=== PATIENT | female | born 1995 | race Caucasian/White ===

== ENCOUNTER 2016-06-28 11:31 | Outpatient (CLI) | payer OTHER ==
[2016-06-28 13:26] LABS: BILIRUBIN,URINE NEGATIVE (NEGATIVE); PH,URINE 6.5 PH (5.0-7.5)
[2016-06-28 13:33] LABS: UR CULTURE IF IND NOT INDICATED
[2016-06-28 14:30] VITALS: BP 123/80
[2016-06-28 14:37] LABS: BILIRUBIN,URINE NEGATIVE (NEGATIVE)
[2016-06-28 14:48] LABS: UR CULTURE IF IND NOT INDICATED; WBC,URINE 0-3 /HPF (0-5)
== END 2016-06-28 15:30 | disposition home or self-care (01) ==
LOC: WFO 11:31 → OB 11:34 → WFO 15:30
PROVIDERS: ATTEND Obstetrics & Gynecology
DX: O99.89 Other specified diseases and conditions complicating pregnancy, childbirth and the puerperium (principal); N23 Unspecified renal colic; Z3A.38 38 weeks gestation of pregnancy
CPT/HCPCS: 81001; 87086; 99214

== ENCOUNTER 2016-07-08 20:52 | Observation (INO) | payer OTHER | END 2016-07-08 22:15 | disposition home or self-care (01) | DX: O47.1 False labor at or after 37 completed weeks of gestation (principal); Z3A.39 39 weeks gestation of pregnancy ==

== ENCOUNTER 2016-07-13 07:02 | Inpatient (IN) | payer OTHER ==
[~2016-07-13 07:02] MED LIST: ONDANSETRON 4 MG/2 ML VIAL IVP PRN; OXYTOCIN/LACTATED RINGERS 250 ML IV SCH; SODIUM CHLORIDE FLUSH 0.9% 10 ML SYRINGE IVP PRN
[2016-07-13] MEDS: LACTATED RINGERS 1,000 ML IV SCH ×2 (08:10→09:15)
[2016-07-13] MEDS ORDERED: SUFENTA/BUPIV 0.4 MCG/0.0625% 150 ML EP ONE (09:06)
[2016-07-13] MEDS ORDERED: fentaNYL 100 MCG/2 ML VIAL ONE (09:06)
[2016-07-13] MEDS ORDERED: ROPIVACAINE 0.2% PF 10 ML VIAL EPI ONE (09:43)
[2016-07-13] MEDS ORDERED: NALOXONE 0.4 MG/ML VIAL IVP PRN ×2 (09:58→11:09)
[2016-07-13] MEDS ORDERED: ONDANSETRON 4 MG/2 ML VIAL IVP PRN ×2 (09:58→11:09)
[2016-07-13] MEDS ORDERED: LACTATED RINGERS 500 ML IV ONE ×2 (09:58→11:09)
[2016-07-13] MEDS ORDERED: diphenhydrAMINE INJ 50 MG/ML VIAL IVP PRN ×2 (09:58→11:09)
[2016-07-13] MEDS ORDERED: SUFENTA/ROPIV 0.5 MCG/0.2% 150 ML EP PRN (09:58)
[2016-07-13] MEDS ORDERED: NALBUPHINE 20 MG/ML AMP IVP PRN ×2 (09:58→11:09)
[2016-07-13] MEDS ORDERED: METOCLOPRAMIDE 10 MG/2 ML VIAL IVP PRN ×2 (09:58→11:09)
[2016-07-13] MEDS ORDERED: ePHEDrine 50 MG/ML AMP IVP PRN ×2 (09:58→11:09)
[2016-07-13] MEDS ORDERED: SUFENTA/BUPIV 0.4 MCG/0.0625% 150 ML EP PRN (11:25)
[2016-07-13] MEDS: SODIUM CHLORIDE FLUSH 0.9% 10 ML SYRINGE IVP SCH (11:45)
[2016-07-13] MEDS ORDERED: MINERAL OIL LIGHT 10 ML MC ONE (15:13)
[2016-07-13] MEDS ORDERED: LIDOCAINE 1% 50 ML MDV ONE (15:26)
[2016-07-13] MEDS: OXYTOCIN/LACTATED RINGERS 250 ML IV ONE ×2 (16:00→17:11)
[2016-07-13] MEDS ORDERED: ZOLPIDEM 5 MG TABLET PO PRN (16:44)
[2016-07-13] MEDS: IBUPROFEN 600 MG TABLET PO SCH ×2 (17:15→22:49)
[2016-07-13] MEDS: HYDROcod/ACETAM 5/325 MG TABLET PO PRN (19:22)
[2016-07-14] MEDS: IBUPROFEN 600 MG TABLET PO SCH ×3 (05:11→23:55)
[2016-07-14] MEDS: DOCUSATE SODIUM 100 MG CAPSULE PO SCH (11:24)
[2016-07-14] MEDS: HYDROCORTISONE/PRAMOXINE 10 GM PR PRN (11:25)
[2016-07-14] MEDS: SODIUM CHLORIDE FLUSH 0.9% 10 ML SYRINGE IVP SCH (14:16)
[2016-07-14] MEDS: LACTATED RINGERS 1,000 ML IV SCH ×2 (14:16→14:17)
[2016-07-14] MEDS: HYDROcod/ACETAM 5/325 MG TABLET PO PRN ×2 (19:10→23:54)
[2016-07-15] MEDS: HYDROCORTISONE/PRAMOXINE 10 GM PR PRN (13:36)
[2016-07-15] MEDS: DOCUSATE SODIUM 100 MG CAPSULE PO SCH (13:36)
[2016-07-15] MEDS: IBUPROFEN 600 MG TABLET PO SCH (13:36)
== END 2016-07-15 14:00 | disposition home or self-care (01) | DRG 775 ==
PROC: 0W8NXZZ Division of Female Perineum, External Approach (ICD-10-PCS; principal; 2016-07-13)
PROC: 10D07Z6 Extraction of Products of Conception, Vacuum, Via Natural or Artificial Opening (ICD-10-PCS; principal; 2016-07-13)
DX: O48.0 Post-term pregnancy (principal); O32.2XX0 Maternal care for transverse and oblique lie, not applicable or unspecified; O77.0 Labor and delivery complicated by meconium in amniotic fluid; O76 Abnormality in fetal heart rate and rhythm complicating labor and delivery; O69.89X0 Labor and delivery complicated by other cord complications, not applicable or unspecified; Z3A.40 40 weeks gestation of pregnancy; Z37.0 Single live birth; Z87.891 Personal history of nicotine dependence; Z87.51 Personal history of pre-term labor

== ENCOUNTER 2016-10-03 17:26 | Emergency (ER) | payer OTHER ==
[2016-10-03 17:41] VITALS: BP 120/77
[2016-10-03] MEDS ORDERED: IBUPROFEN 800 MG TABLET PO STA (17:48)
[2016-10-03] MEDS ORDERED: IBUPROFEN 800 MG TABLET PO ONE (17:56)
--- NOTE | 2016-10-03 18:48 | XRAY Preliminary Report ---
Exam: XR Finger(s) RT IMPRESSION: Mildly displaced fracture of the head and shaft of the fifth middle phalanx. [facility] SITE ID: [id number]
--- NOTE | 2016-10-03 18:50 | ED Physician Documentation ---
PD HPI UPPER EXT INJURY - Stated complaint Stated Complaint: RT HAND PX - Chief complaint Chief Complaint: Ext Problem - History obtained from History obtained from: Patient - History of Present Illness Location: Right, Finger Type of injury: Twist Where injury occurred: Park Timing - onset: How many hours ago (1) Associated symptoms: Swelling. No: Weakness, Numbness Similar symptoms before: Has not had sx before - Additonal information Additional information: The patient is a 21-year-old female who presents with injury to her right ring and little fingers. Her dog's leash was wrapped around the fingers of her right hand and was yanked when she was her dog from another dog at the park about one hour prior to arrival. She is right hand dominant. She denies any other injuries. Review of Systems Respiratory: denies: Dyspnea Skin: denies: Abrasion (s), Laceration (s) Musculoskeletal: reports: Extremity pain (Fingers right hand). denies: Neck pain, Back pain Neurologic: denies: Focal weakness, Numbness PD PAST MEDICAL HISTORY - Past Medical History Cardiovascular: None Respiratory: None Neuro: None Endocrine/Autoimmune: None - Present Medications Home Medications: Ambulatory Orders Medication Instructions Recorded Confirmed HYDROcod/ACETAM 5/325 [Vicodin 1 - 2 ea PO Q6H PRN #15 tablet 10/03/16 5/325] - Allergies Allergies/Adverse Reactions: Allergies Allergy/AdvReac Type Severity Reaction Status Date / Time No Known Drug Allergies Allergy Verified 10/03/16 17:41 - Social History Smoking Status: Never smoker PD ED PE NORMAL - Vitals Vital signs reviewed: Yes (normal) - General General: Alert and oriented X 3, Well developed/nourished - HEENT HEENT: Atraumatic - Neck Neck: No bony TTP - Respiratory Respiratory: No respiratory distress - Derm Derm: No rash - Extremities Extremities: Other (There is swelling and associated tenderness to palpation of the right little finger, particularly over the middle phalanx. There is also mild tenderness to palpation of the right ring finger, without specific point tenderness. There is no break in the integument. Distal neurovascular is intact.) - Neuro Neuro: Alert and oriented X 3, No motor deficit, No sensory deficit Results - Rads (name of study) Right ring and little fingers Radiology: Prelim report reviewed, EMP read contemporaneously, See rad report ( Mildly displaced fracture of the head and shaft of the fifth middle phalanx.) PD MEDICAL DECISION MAKING - ED course Complexity details: reviewed results, re-evaluated patient, considered differential, d/w patient, d/w family ED course: The patient's presentation is significant for a nondisplaced fracture of the middle phalanx of the right little finger. Treatment in the emergency department included kaylan taping of the little finger to the ring finger. Ibuprofen 800 mg was administered orally. 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 She is being discharged with prescription for Vicodin, 15 tablets. Departure - Departure Disposition: 01 Home, Self Care Clinical Impression: Fracture of middle phalanx of finger of right hand Condition: Stable Instructions: ED Fx Finger Closed Follow-Up: JENSEN Torres [Provider Group] Prescriptions: HYDROcod/ACETAM 5/325 [Vicodin 5/325] 1 - 2 ea PO Q6H PRN #15 tablet PRN Reason: Pain Comments: Keep your right hand elevated as much of the time as possible. Apply icepack intermittently for the first 3 or 4 days. Keep the right little finger kaylan taped to the ring finger. Can use ibuprofen, up to 800 mg 3 times daily for its anti-inflammatory effect. You can use Vicodin as prescribed if needed for pain. Follow up with your primary physician within one week. Call to schedule an appointment. Return to the emergency department if you develop markedly increasing pain or swelling, or otherwise worsening symptoms. Forms: Activity restrictions Discharge Date/Time: 10/03/16 18:55
--- NOTE | 2016-10-03 18:51 | XRAY Report ---
EXAM: RIGHT FOURTH AND FIFTH DIGIT RADIOGRAPHY EXAM DATE: 10/03/2016 06:11 PM. CLINICAL HISTORY: Injury to right little and ring fingers. COMPARISON: None. TECHNIQUE: 3 views. FINDINGS: Bones: Mildly displaced oblique fracture of the head and shaft of the fifth middle phalanx extending to the edge of the joint. No other bony abnormalities. Joints: Normal. No subluxations. Soft Tissues: Associated soft tissue swelling. IMPRESSION: Mildly displaced fracture of the head and shaft of the fifth middle phalanx. [facility] Referring Provider Line: [phone] SITE ID: [id number]
== END 2016-10-03 18:55 | disposition home or self-care (01) ==
LOC: ED 17:26
DX: S62.626A Displaced fracture of middle phalanx of right little finger, initial encounter for closed fracture (principal); X50.0XXA Overexertion from strenuous movement or load, initial encounter; Y93.K1 Activity, walking an animal; Y92.830 Public park as the place of occurrence of the external cause
CPT/HCPCS: 73140; 99283; A9270

== ENCOUNTER 2017-02-22 14:09 | Emergency (ER) | payer OTHER ==
[2017-02-22] MEDS ORDERED: IBUPROFEN 800 MG TABLET PO STA (14:31)
[2017-02-22] MEDS ORDERED: IBUPROFEN 800 MG TABLET PO ONE (14:47)
--- NOTE | 2017-02-22 15:20 | XRAY Preliminary Report ---
Exam: XR HUMERUS LT IMPRESSION: Normal humerus radiography. [facility] SITE ID: [id number]
--- NOTE | 2017-02-22 15:23 | XRAY Report ---
EXAM: LEFT HUMERUS RADIOGRAPHY EXAM DATE: 02/22/2017 03:10 PM. CLINICAL HISTORY: Left upper arm pain at implant site. COMPARISON: None. TECHNIQUE: 2 views. FINDINGS: Bones: Normal. No fractures or bone lesions. Joints: Normal. No effusions or subluxations in the visualized shoulder or elbow joints. Soft Tissues: Implant visible medial to the distal humerus on frontal view. No soft tissue gas or oth er abnormality. IMPRESSION: Normal humerus radiography. [facility] Referring Provider Line: [phone] SITE ID: [id number]
--- NOTE | 2017-02-22 15:52 | ED Physician Documentation ---
History of Present Illness - Stated complaint Stated Complaint: ARM PX/NEXPLANON IMPLANT - Chief complaint Chief Complaint: Ext Problem - History obtained from History obtained from: Patient - Additonal information Additional information: The patient is a 22-year-old female who presents with pain in her left upper arm at the site of her Nexplanon control implant. She states, "I think it snapped." The implant was placed in July 2016. The pain started yesterday. She denies any traumatic injury. Review of Systems Constitutional: denies: Fever Nose: denies: Congestion Respiratory: denies: Dyspnea, Cough GI: denies: Nausea, Vomiting Skin: denies: Rash Musculoskeletal: reports: Extremity pain (left upper arm.) Neurologic: denies: Focal weakness, Numbness PD PAST MEDICAL HISTORY - Past Medical History Cardiovascular: None Respiratory: None Neuro: None Endocrine/Autoimmune: None - Past Surgical History Past Surgical History: No - Present Medications Home Medications: Ambulatory Orders Medication Instructions Recorded Confirmed No Known Home Medications [No 02/22/17 02/22/17 Known Home Medications] - Allergies Allergies/Adverse Reactions: Allergies Allergy/AdvReac Type Severity Reaction Status Date / Time No Known Drug Allergies Allergy Verified 10/03/16 17:41 - Social History Does the pt smoke?: No Smoking Status: Never smoker Does the pt drink ETOH?: No Does the pt have substance abuse?: No - Immunizations Immunizations are current?: Yes - POLST Patient has POLST: No PD ED PE NORMAL - Vitals Vital signs reviewed: Yes (normal) - General General: Alert and oriented X 3, Well developed/nourished - HEENT HEENT: Atraumatic - Cardiac Cardiac: RRR - Respiratory Respiratory: No respiratory distress - Derm Derm: No rash - Extremities Extremities: Other (There is tenderness to palpation at the site of the Nexplanon implant in the left upper arm. There is no overlying erythema, and no axillary adenopathy. Distal neurovascular is intact.) - Neuro Neuro: Alert and oriented X 3, No motor deficit, No sensory deficit Results - Vitals Vitals: Oxygen O2 Source Room air - Rads (name of study) left upper arm Radiology: Prelim report reviewed, EMP read indepedently (Nondisplaced fracture of implant.) PD MEDICAL DECISION MAKING - ED course Complexity details: reviewed results, re-evaluated patient, considered differential, d/w patient, d/w risk consultant ED course: The patient's presentation is significant for a fractured Nexplanon implant. X- ray reveals a nondisplaced fracture of the implant. There is no evidence of infection, or other traumatic injury. I discussed her presentation with Dr. Venegas, who evaluated her in the emergency department, and removed the implant under local anesthetic. Ibuprofen 800 mg was administered orally. I discussed with the patient the expected course of healing of the surgical incision, as well as potentially worrisome signs or symptoms that should prompt reevaluation in the emergency department. Departure - Departure Disposition: 01 Home, Self Care Clinical Impression: Nexplanon removal Condition: Stable Instructions: Etonogestrel implant Follow-Up: Itz Carranza ARNP [Primary Care Provider] - Ben Venegas MD [Provider Admit Priv/Credential] - Comments: Keep the wound clean. Follow-up with Dr. Venegas as planned. Return to the emergency department if you develop any sign of infection, or otherwise worsening symptoms. Discharge Date/Time: 02/22/17 17:14
[2017-02-22] MEDS ORDERED: LIDOCAINE MPF 1%-EPI 1:200000 30 ML VIAL ONE (16:25)
[2017-02-22 17:13] VITALS: BP 121/76
--- NOTE | 2017-02-22 19:44 | PROCEDURE REPORT ---
DATE OF PROCEDURE: 02/22/2017 00:00:00 IDENTIFICATION: The patient is a 22-year-old female who complains of left arm pain at the site of her Nexplanon implant. HISTORY OF PRESENT ILLNESS: The patient states that last night she rolled over in bed and felt a laquita p pain. She presents for followup on this particular issue. She states that at home she was able to d emonstrate an angulation of the Nexplanon roughly mid shaft. She has continued to suffer pain from th is. She has had an x-ray and this was read to show evidence of a nondisplaced break in the Nexplanon. Following explaining this to the patient, the concerns about migration versus additional medication release, it was decided to remove this. PROCEDURE: Following informed consent, the area was prepped with Betadine. Local anesthesia with 1% l idocaine was utilized with a 27 gauge needle. She was then draped in the usual fashion. At this point , an incision was made over the mid portion of the Nexplanon where the break in the Nexplanon was pal pated was carried down to the Nexplanon. At this point the Nexplanon was encountered and indeed there was evidence of a break in the Nexplanon roughly mid shaft. The ends were grasped with hemostats and removed. The area was then closed utilizing Steri-Strips, then dressed with a pressure dressing. The patient tolerated the procedure well. IMPRESSION: Broken Nexplanon. PLAN: Will have the patient followup in the office in roughly 1 week for evaluation. She is told that should the pressure dressing be too tight that she should loosen it. She was cautioned to watch for signs of infection such as redness, increased pain. She may utilize Motrin for pain control. JOB #: [id number] EXT JOB #:[id number]
== END 2017-02-22 17:14 | disposition home or self-care (01) ==
LOC: ED 14:09
DX: T85.898A Other specified complication of other internal prosthetic devices, implants and grafts, initial encounter (principal); M79.622 Pain in left upper arm; Z30.46 Encounter for surveillance of implantable subdermal contraceptive
CPT/HCPCS: 10120; 73060; 99283; A9270

== ENCOUNTER 2017-09-24 20:07 | Emergency (ER) | payer OTHER ==
--- NOTE | 2017-09-24 22:27 | ED Physician Documentation ---
History of Present Illness - Stated complaint Stated Complaint: CHEST PX/VISION LOSS - Chief complaint Chief Complaint: Cardiac - History obtained from History obtained from: Patient - History of Present Illness Timing: Enter time (18:00), Today Pain level now: 2 Radiates to: back Improved by: no ameliorating factors Worsened by: no exacerbating factors - Additonal information Additional information: c/o midline low chest pain radiating to back onset 6 PM. has had similar episodes past few months. denies n/v. Review of Systems Constitutional: reports: Reviewed and negative Cardiac: reports: Chest pain / pressure. denies: Palpitations, Pedal edema, Calf pain Respiratory: reports: Reviewed and negative GI: reports: Abdominal Pain. 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 - Past Surgical History Past Surgical History: No - Present Medications Home Medications: Ambulatory Orders Medication Instructions Recorded Confirmed No Known Home Medications [No 02/22/17 02/22/17 Known Home Medications] - Allergies Allergies/Adverse Reactions: Allergies Allergy/AdvReac Type Severity Reaction Status Date / Time No Known Drug Allergies Allergy Verified 10/03/16 17:41 - Social History Does the pt smoke?: No Smoking Status: Never smoker Does the pt drink ETOH?: No Does the pt have substance abuse?: No - Immunizations Immunizations are current?: Yes - POLST Patient has POLST: No PD ED PE NORMAL - Vitals Vital signs reviewed: Yes - General General: Alert and oriented X 3, No acute distress, Well developed/nourished - Cardiac Cardiac: RRR, No murmur, No gallop, No rub - Respiratory Respiratory: No respiratory distress, Clear bilaterally - Abdomen Abdomen: Soft, Non distended, Other (tender to palptation across lower abdomen with positive Rovsings sign; also TTP RUQ. sparing of LUQ) Results - Vitals Vitals: Oxygen O2 Source Room air - Labs Labs: Laboratory Tests 09/24/17 09/24/17 09/24/17 23:03 23:03 23:03 WBC 8.3 RBC 4.76 Hgb 12.9 Hct 38.2 MCV 80.2 L MCH 27.0 MCHC 33.7 RDW 12.8 Plt Count 274 MPV 8.2 Neut # (Auto) 3.7 Lymph # (Auto) 3.5 [place] # (Auto) 0.8 Eos # (Auto) 0.2 Baso # (Auto) 0.0 Absolute Nucleated RBC 0.01 Nucleated RBC % 0.1 D-Dimer 114.3 L Sodium 137 Potassium 3.7 Chloride 106 Carbon Dioxide 24 Anion Gap 7.0 BUN 14 Creatinine 0.4 Estimated GFR (MDRD) 198 Glucose 110 H Calcium 9.1 Total Bilirubin 0.4 AST 22 ALT 36 Alkaline Phosphatase 123 H Total Protein 6.7 Albumin 3.5 Globulin 3.2 Albumin/Globulin Ratio 1.1 Lipase 18 L - Rads (name of study) CT A/P Radiology: Prelim report reviewed, See rad report PD MEDICAL DECISION MAKING - ED course Complexity details: reviewed results, re-evaluated patient, considered differential, d/w patient - Sepsis Event Vital Signs: Oxygen O2 Source Room air Departure - Departure Disposition: 01 Home, Self Care Clinical Impression: Atypical chest pain, Abdominal pain Condition: Good Instructions: ED Abdominal Pain Unkn Cause, ED Chest Pain Atypical Unkn Cause Follow-Up: ADRYAN GIANG DO [Primary Care Provider] - Discharge Date/Time: 09/25/17 02:43
[2017-09-24 23:20] LABS: BASOPHILS % (AUTO) 0.3 %; EOSINOPHILS # (AUTO) 0.2 10^3/uL (0.0-0.7); EOSINOPHILS % (AUTO) 2.4 %; HGB - HEMOGLOBIN 12.9 g/dL (12.0-16.0); LYMPHOCYTES # (AUTO) 3.5 10^3/uL (1.5-3.5); LYMPHOCYTES % (AUTO) 42.1 %; MEAN CORPUSCULAR HGB CONC 33.7 g/dL (32.0-36.0); MEAN CORPUSCULAR VOLUME 80.2 fL (81.0-99.0); MEAN PLATELET VOLUME 8.2 fL (7.9-10.8); MONOCYTES # (AUTO) 0.8 10^3/uL (0.0-1.0); MONOCYTES % (AUTO) 10.1 %; NEUTROPHILS # (AUTO) 3.7 10^3/uL (1.5-6.6); NEUTROPHILS % (AUTO) 45.1 %; PLT - PLATELET COUNT 274 10^3/uL (130-450); RED BLOOD COUNT 4.76 10^6/uL (4.20-5.40); RED CELL DISTRIBUTION WIDTH 12.8 % (12.0-15.0); WHITE BLOOD COUNT 8.3 x10^3/uL (4.8-10.8)
[2017-09-24 23:34] LABS: ALBUMIN 3.5 g/dL (3.2-5.5); ALBUMIN/GLOBULIN RATIO 1.1 (1.0-2.2); BILIRUBIN,TOTAL 0.4 mg/dL (0.2-1.0); CALCIUM 9.1 mg/dL (8.5-10.3); CREATININE 0.4 mg/dL (0.4-1.0); TOTAL PROTEIN 6.7 g/dL (6.7-8.2)
[2017-09-25] MEDS ORDERED: IOPAMIDOL-300 100 ML VIAL ONE (00:53)
[2017-09-25] MEDS ORDERED: IOPAMIDOL-300 100 ML VIAL IVP ONE (01:19)
--- NOTE | 2017-09-25 01:55 | CT Report ---
EXAM: CT ABDOMEN AND PELVIS EXAM DATE: 09/25/2017 01:23 AM. CLINICAL HISTORY: Abd. pain. COMPARISONS: None. TECHNIQUE: Routine helical CT imaging was performed through the abdomen and pelvis. IV contrast: 100M L ISOVUE 300. Enteric contrast: No. Reconstructions: Coronal and sagittal. In accordance with CT protocol optimization, one or more of the following dose reduction techniques w ere utilized for this exam: automated exposure control, adjustment of mA and/or KV based on patient s ize, or use of iterative reconstructive technique. FINDINGS: Lung Bases: Unremarkable. Liver: Normal. No masses. Gallbladder/Bile Ducts: Unremarkable. Spleen: Normal. Pancreas: Normal. Adrenal Glands: Normal. Kidneys: Normal. No masses or hydronephrosis. Peritoneal Cavity/Bowel: Normal. No free fluid, free air or adenopathy. No masses or acute inflammato ry process. The appendix is well visualized and normal. Pelvic Organs: Normal. The bladder and visualized pelvic organs are within normal limits. Vasculature: No aneurysms or other significant abnormality. Bones: No significant abnormality. Other: None. IMPRESSION: Normal abdomen and pelvis CT. [facility] Referring Provider Line: [phone] SITE ID: [id number]
--- NOTE | 2017-09-25 01:57 | XRAY Preliminary Report ---
Exam: XR CHEST 2 VIEW X-RAY IMPRESSION: Normal 2-view chest radiography. [facility] SITE ID: [id number]
--- NOTE | 2017-09-25 01:57 | XRAY Report ---
EXAM: CHEST RADIOGRAPHY EXAM DATE: 09/25/2017 01:25 AM. CLINICAL HISTORY: Chest pain. COMPARISON: None. TECHNIQUE: 2 views. FINDINGS: Lungs/Pleura: No focal opacities evident. No pleural effusion. No pneumothorax. Normal volumes. Mediastinum: Heart and mediastinal contours are unremarkable. Other: None. IMPRESSION: Normal 2-view chest radiography. [facility] Referring Provider Line: [phone] SITE ID: [id number]
[2017-09-25 02:44] VITALS: BP 91/71
== END 2017-09-25 02:43 | disposition home or self-care (01) ==
LOC: ED 20:07
DX: R07.89 Other chest pain (principal); R10.9 Unspecified abdominal pain
CPT/HCPCS: 36415; 71046; 74177; 80053; 83690; 85025; 85379; 93005; 99283; 99284; Q9967

== ENCOUNTER 2017-09-30 13:57 | Emergency (ER) | payer OTHER ==
[2017-09-30 14:10] VITALS: BP 118/64
[2017-09-30] MEDS ORDERED: oxyCOD/ACETAMIN 5 MG/325 MG TABLET PO STA (14:23)
[2017-09-30] MEDS ORDERED: IBUPROFEN 400 MG TABLET PO STA (14:23)
--- NOTE | 2017-09-30 14:30 | ED Physician Documentation ---
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 : None HEENT: None Psych: None Musculoskeletal: None Derm: None - Past Surgical History Past Surgical History: No - Present Medications Home Medications: Ambulatory Orders Medication Instructions Recorded Confirmed Atenolol 25 mg 09/30/17 - Allergies Allergies/Adverse Reactions: Allergies Allergy/AdvReac Type Severity Reaction Status Date / Time No Known Drug Allergies Allergy Verified 10/03/16 17:41 - Social History Does the pt smoke?: No Smoking Status: Never smoker Does the pt drink ETOH?: No Does the pt have substance abuse?: No - Immunizations Immunizations are current?: Yes - POLST Patient has POLST: No PD ED PE NORMAL - Vitals Vital signs reviewed: Yes - General General: Alert and oriented X 3 - Derm Derm: Normal color - Extremities Extremities: Other (no prox tib fib TTP, severe TTP distal fibula, mild distal tibia, pain to lat foot as well, STS no deformity, MSV intact) Results - Vitals Vitals: Vital Signs - 24 hr 09/30/17 14:05 Temperature 36.5 C Heart Rate 79 Respiratory 18 Rate Blood Pressure 118/64 O2 Saturation 100 Oxygen O2 Source Room air - Rads (name of study) foot and ankle Radiology: See rad report (neg) PD MEDICAL DECISION MAKING - Sepsis Event Vital Signs: Vital Signs - 24 hr 09/30/17 14:05 Temperature 36.5 C Heart Rate 79 Respiratory 18 Rate Blood Pressure 118/64 O2 Saturation 100 Oxygen O2 Source Room air Departure - Departure Disposition: 01 Home, Self Care Clinical Impression: Ankle sprain Qualifiers: Encounter type: initial encounter Involved ligament of ankle: unspecified ligament Laterality: right Qualified Code(s): S93.401A - Sprain of unspecified ligament of right ankle, initial encounter Condition: Good Instructions: ED Sprain Ankle W X Ray Follow-Up: ADRYAN GIANG DO [Primary Care Provider] - Comments: The xray does not show any broken bones So this is likely a ligament injury Recommend no weight bearing for a week, then advance as tolerated REBECCA, elevation and ice to decrease the swelling Motrin as needed for pain If the pain is still too severe to bear weight in 2 weeks, please see your PMD for consideration of further imaging Forms: Activity restrictions
--- NOTE | 2017-09-30 15:03 | XRAY Report ---
Procedure Date: 09/30/2017 Accession Number: [id number] / [id number] Procedure: XR - Ankle 3 View RT CPT Code: FULL RESULT: EXAM: RIGHT ANKLE RADIOGRAPHY EXAM DATE: 09/30/2017 02:48 PM. CLINICAL HISTORY: Fell - ankle and foot pain. COMPARISON: None. TECHNIQUE: 3 views. FINDINGS: Bones: Well corticated ossicle adjacent to the lateral malleolar tip. No definite fracture. Joints: Normal. No effusion. No subluxations. The ankle mortise is normally aligned. Soft Tissues: Lateral soft tissue swelling. IMPRESSION: Lateral soft tissue swelling without evidence of acute fracture. [facility]
--- NOTE | 2017-09-30 15:04 | XRAY Report ---
Procedure Date: 09/30/2017 Accession Number: [id number] / [id number] Procedure: XR - Foot 3 View RT CPT Code: FULL RESULT: EXAM: RIGHT FOOT RADIOGRAPHY EXAM DATE: 09/30/2017 02:48 PM. CLINICAL HISTORY: Fell - ankle and foot pain. COMPARISON: None. TECHNIQUE: 3 views. FINDINGS: Bones: Normal. No fractures or bone lesions. Joints: Normal. No subluxations. Soft Tissues: Normal. No soft tissue swelling. IMPRESSION: Normal foot radiography. [facility]
== END 2017-09-30 16:30 | disposition home or self-care (01) ==
LOC: ED 13:57
DX: S93.401A Sprain of unspecified ligament of right ankle, initial encounter (principal); W19.XXXA Unspecified fall, initial encounter; Y93.89 Activity, other specified
CPT/HCPCS: 73610; 73630; 99282; 99283; A9270

== ENCOUNTER 2017-10-08 17:01 | Emergency (ER) | payer OTHER ==
[2017-10-08 17:23] LABS: BASOPHILS % (AUTO) 0.4 %; EOSINOPHILS # (AUTO) 0.2 10^3/uL (0.0-0.7); EOSINOPHILS % (AUTO) 3.9 %; HGB - HEMOGLOBIN 13.8 g/dL (12.0-16.0); LYMPHOCYTES # (AUTO) 2.1 10^3/uL (1.5-3.5); LYMPHOCYTES % (AUTO) 34.6 %; MEAN CORPUSCULAR HEMOGLOBIN 26.9 pg (27.0-31.0); MEAN CORPUSCULAR VOLUME 81.3 fL (81.0-99.0); MONOCYTES # (AUTO) 0.9 10^3/uL (0.0-1.0); MONOCYTES % (AUTO) 15.5 %; NEUTROPHILS # (AUTO) 2.8 10^3/uL (1.5-6.6); NEUTROPHILS % (AUTO) 45.6 %; PLT - PLATELET COUNT 249 10^3/uL (130-450); RED BLOOD COUNT 5.15 10^6/uL (4.20-5.40); RED CELL DISTRIBUTION WIDTH 13.8 % (12.0-15.0); WHITE BLOOD COUNT 6.1 x10^3/uL (4.8-10.8)
[2017-10-08 17:35] LABS: ALBUMIN/GLOBULIN RATIO 1.1 (1.0-2.2); BILIRUBIN,TOTAL 0.4 mg/dL (0.2-1.0); CALCIUM 9.1 mg/dL (8.5-10.3); CREATININE 0.5 mg/dL (0.4-1.0); TOTAL PROTEIN 7.7 g/dL (6.7-8.2)
[2017-10-08] MEDS ORDERED: SODIUM CHLORIDE 0.9% 1,000 ML IV ONE (18:35)
[2017-10-08] MEDS ORDERED: ONDANSETRON 4 MG/2 ML VIAL IVP STA (18:35)
--- NOTE | 2017-10-08 18:38 | ED Physician Documentation ---
PD HPI ABD PAIN - Stated complaint Stated Complaint: FLU LIKE SX/LIMBS TINGLE/ LOW WBC - Chief complaint Chief Complaint: Abd Pain - History obtained from History obtained from: Patient - History of Present Illness Timing - onset: Other (This is a 22-year-old woman with Graves' disease, pending thyroid scan and potential thyroidectomy. She has been having on and off blurry vision and dry skin but starting yesterday she has had vomiting and diarrhea and a fever yesterday which since resolved. She has not vomited in a few hours but feels dizzy and like her vision is going out more than normal she has been tingly all over. No recent travel.) Review of Systems Ten Systems: 10 systems reviewed and negative Constitutional: reports: Fever, Chills, Fatigue Cardiac: denies: Chest pain / pressure, Palpitations Respiratory: denies: Dyspnea, Cough GI: reports: Nausea, Vomiting, Diarrhea. 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 : None HEENT: None Psych: None Musculoskeletal: None Derm: None - Past Surgical History Past Surgical History: No - Present Medications Home Medications: Ambulatory Orders Medication Instructions Recorded Confirmed Atenolol 25 mg 09/30/17 Methimazole [Tapazole] 10 mg PO 10/08/17 Ondansetron HCl [Zofran] 4 mg PO Q6H PRN #10 tablet 10/08/17 Vitamin D3/Folic Acid [Cifrazol 1 each PO 10/08/17 3,775 Unit-1 mg Cap] - Allergies Allergies/Adverse Reactions: Allergies Allergy/AdvReac Type Severity Reaction Status Date / Time No Known Drug Allergies Allergy Verified 10/08/17 17:09 - Social History Does the pt smoke?: No Smoking Status: Never smoker Does the pt drink ETOH?: No Does the pt have substance abuse?: No - Immunizations Immunizations are current?: Yes - POLST Patient has POLST: No PD ED PE NORMAL - Vitals Vital signs reviewed: Yes - General General: Alert and oriented X 3, No acute distress - HEENT HEENT: PERRL, EOMI - Neck Neck: Other (She does have a goiter) - Cardiac Cardiac: RRR, No murmur - Respiratory Respiratory: No respiratory distress, Clear bilaterally - Abdomen Abdomen: Normal bowel sounds, Soft, Non tender - Extremities Extremities: No edema, No calf tenderness / cord - Neuro Neuro: Alert and oriented X 3, Normal speech Results - Vitals Vitals: Vital Signs - 24 hr 10/08/17 17:06 Temperature 37 C Heart Rate 86 Respiratory 18 Rate Blood Pressure 132/81 H O2 Saturation 100 Oxygen O2 Source Room air - Labs Labs: Laboratory Tests 10/08/17 10/08/17 10/08/17 17:18 17:18 18:27 WBC 6.1 RBC 5.15 Hgb 13.8 Hct 41.9 MCV 81.3 MCH 26.9 L MCHC 33.0 RDW 13.8 Plt Count 249 MPV 8.0 Neut # (Auto) 2.8 Lymph # (Auto) 2.1 [place] # (Auto) 0.9 Eos # (Auto) 0.2 Baso # (Auto) 0.0 Absolute Nucleated RBC 0.00 Nucleated RBC % 0.1 VBG pH VBG pCO2 VBG pO2 VBG HCO3 VBG Total CO2 VBG O2 Saturation VBG Base Excess Sodium 135 Potassium 4.1 Chloride 105 Carbon Dioxide 25 Anion Gap 5.0 L BUN 13 Creatinine 0.5 Estimated GFR (MDRD) 153 Glucose 102 H Calcium 9.1 Total Bilirubin 0.4 AST 19 ALT 31 Alkaline Phosphatase 152 H Total Protein 7.7 Albumin 4.0 Globulin 3.7 Albumin/Globulin Ratio 1.1 Lipase 16 L Urine Color YELLOW Urine Clarity CLEAR Urine pH 6.0 Ur Specific [place] >=1.030 H Urine Protein NEGATIVE Urine Glucose (UA) NEGATIVE Urine Ketones NEGATIVE Urine Occult Blood NEGATIVE Urine Nitrite NEGATIVE Urine Bilirubin NEGATIVE Urine Urobilinogen 0.2 (NORMAL) Ur Leukocyte Esterase NEGATIVE Ur Microscopic Review NOT INDICATED Urine Culture Comments NOT INDICATED Urine HCG, Qual 10/08/17 10/08/17 18:27 18:45 WBC RBC Hgb Hct MCV MCH MCHC RDW Plt Count MPV Neut # (Auto) Lymph # (Auto) [place] # (Auto) Eos # (Auto) Baso # (Auto) Absolute Nucleated RBC Nucleated RBC % VBG pH 7.305 L VBG pCO2 51.9 H VBG pO2 37.8 VBG HCO3 25.3 VBG Total CO2 26.8 VBG O2 Saturation 69.4 VBG Base Excess -1.8 Sodium Potassium Chloride Carbon Dioxide Anion Gap BUN Creatinine Estimated GFR (MDRD) Glucose Calcium Total Bilirubin AST ALT Alkaline Phosphatase Total Protein Albumin Globulin Albumin/Globulin Ratio Lipase Urine Color Urine Clarity Urine pH Ur Specific [place] >=1.030 H Urine Protein Urine Glucose (UA) Urine Ketones Urine Occult Blood Urine Nitrite Urine Bilirubin Urine Urobilinogen Ur Leukocyte Esterase Ur Microscopic Review Urine Culture Comments Urine HCG, Qual NEGATIVE PD MEDICAL DECISION MAKING - ED course ED course: She has what sounds like gastroenteritis complicating an ongoing issue with her thyroid. She felt better after Zofran and fluids here. Her diagnostics were basically normal. - Sepsis Event Vital Signs: Vital Signs - 24 hr 10/08/17 17:06 Temperature 37 C Heart Rate 86 Respiratory 18 Rate Blood Pressure 132/81 H O2 Saturation 100 Oxygen O2 Source Room air Departure - Departure Disposition: Home, Self Care Clinical Impression: Gastroenteritis Condition: Good Record reviewed to determine appropriate education?: Yes Instructions: ED Gastroenteritis Viral Prescriptions: Ondansetron HCl [Zofran] 4 mg PO Q6H PRN #10 tablet PRN Reason: Nausea / Vomiting Comments: Call your doctor to arrange a follow-up appointment, make the next available appointment. In the interim, return anytime if worse or if new symptoms develop. Your blood pressure was elevated today on check into the emergency department. This does not mean that you have hypertension, it is a common phenomenon to come to the emergency department and have elevated blood pressure. I recommend that you see your primary care physician within the week to have it rechecked when you are feeling better. Forms: Activity restrictions
[2017-10-08 18:40] LABS: BILIRUBIN,URINE NEGATIVE (NEGATIVE); GLUCOSE, URINE (UA) NEGATIVE (NEGATIVE); KETONES,URINE (UA) NEGATIVE (NEGATIVE); LEUKOCYTE ESTERASE, URINE NEGATIVE (NEGATIVE); NITRITE,URINE NEGATIVE (NEGATIVE); OCCULT BLOOD,URINE NEGATIVE (NEGATIVE); PROTEIN,URINE NEGATIVE (NEGATIVE); UROBILINOGEN,URINE 0.2 (NORMAL) E.U./dL (NORMAL)
[2017-10-08 18:43] LABS: CLARITY,URINE CLEAR (CLEAR); HCG UR QUAL NEGATIVE
[2017-10-08 19:09] LABS: VBG BASE EXCESS -1.8 mmol/L (-2 - +2); VBG PCO2 51.9 mmHg (41-51); VBG PH 7.305 (7.31-7.41); VBG PO2 37.8 mmHg (25-47); VBG TOTAL CO2 26.8 mmol/L (24-29)
[2017-10-08 19:50] VITALS: BP 122/77
== END 2017-10-08 19:54 | disposition home or self-care (01) ==
LOC: ED 17:01
DX: K52.9 Noninfective gastroenteritis and colitis, unspecified (principal); R03.0 Elevated blood-pressure reading, without diagnosis of hypertension; E05.00 Thyrotoxicosis with diffuse goiter without thyrotoxic crisis or storm
CPT/HCPCS: 36415; 80053; 81001; 81003; 81025; 82803; 83690; 85025; 87086; 96361; 96374; 99283

== ENCOUNTER 2017-10-22 19:09 | Emergency (ER) | payer OTHER ==
[2017-10-22 19:31] LABS: BASOPHILS % (AUTO) 0.4 %; EOSINOPHILS # (AUTO) 0.2 10^3/uL (0.0-0.7); EOSINOPHILS % (AUTO) 2.1 %; HGB - HEMOGLOBIN 12.6 g/dL (12.0-16.0); LYMPHOCYTES # (AUTO) 3.3 10^3/uL (1.5-3.5); LYMPHOCYTES % (AUTO) 40.2 %; MEAN CORPUSCULAR HEMOGLOBIN 26.8 pg (27.0-31.0); MEAN CORPUSCULAR HGB CONC 32.8 g/dL (32.0-36.0); MEAN CORPUSCULAR VOLUME 81.5 fL (81.0-99.0); MEAN PLATELET VOLUME 7.9 fL (7.9-10.8); MONOCYTES # (AUTO) 0.8 10^3/uL (0.0-1.0); MONOCYTES % (AUTO) 9.8 %; NEUTROPHILS # (AUTO) 3.9 10^3/uL (1.5-6.6); NEUTROPHILS % (AUTO) 47.5 %; PLT - PLATELET COUNT 302 10^3/uL (130-450); RED CELL DISTRIBUTION WIDTH 14.3 % (12.0-15.0); WHITE BLOOD COUNT 8.2 x10^3/uL (4.8-10.8)
[2017-10-22 19:45] LABS: ALBUMIN 3.6 g/dL (3.2-5.5); ALBUMIN/GLOBULIN RATIO 1.2 (1.0-2.2); BILIRUBIN,TOTAL 0.5 mg/dL (0.2-1.0); CALCIUM 8.6 mg/dL (8.5-10.3); CREATININE 0.5 mg/dL (0.4-1.0); TOTAL PROTEIN 6.7 g/dL (6.7-8.2)
[2017-10-22 19:52] LABS: TROPONIN I < 0.04 ng/mL (<0.49)
[2017-10-22 19:54] LABS: CREATINE KINASE MB 0.6 ng/mL (0.6-6.3)
--- NOTE | 2017-10-22 20:03 | ED Physician Documentation ---
PD HPI CHEST PAIN - Stated complaint Stated Complaint: CP/BLURRY VISION - Chief complaint Chief Complaint: Cardiac - History obtained from History obtained from: Patient - History of Present Illness Timing - onset: Today Timing - onset during: Sleep Timing - duration: Seconds Timing - details: Abrupt onset Severity Comments: Moderate Quality: Stabbing Location: Left chest Radiation: Other (No radiation) Improved by: Other (Symptoms resolved spontaneously) Associated symptoms: Other (No associated symptoms) Similar symptoms before: Has not had sx before Recently seen: Not recently seen - Additional information Additional information: 22-year-old with intermittent episodes of sharp stabbing left-sided chest pain without radiation. No triggering or relieving factors. Review of Systems Constitutional: denies: Fever, Chills Eyes: denies: Decreased vision Ears: denies: Ear pain Nose: denies: Congestion Throat: denies: Sore throat Cardiac: reports: Chest pain / pressure. 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 : None HEENT: None Psych: None Musculoskeletal: None Derm: None - Past Surgical History Past Surgical History: No - Present Medications Home Medications: Ambulatory Orders Medication Instructions Recorded Confirmed Atenolol 25 mg PO BID 09/30/17 10/22/17 Methimazole [Tapazole] 10 mg PO TID 10/08/17 10/22/17 Ondansetron HCl [Zofran] 4 mg PO Q6H PRN #10 tablet 10/08/17 10/22/17 Vitamin D3/Folic Acid [Cifrazol 1 each PO DAILY 10/08/17 10/22/17 3,775 Unit-1 mg Cap] - Allergies Allergies/Adverse Reactions: Allergies Allergy/AdvReac Type Severity Reaction Status Date / Time No Known Drug Allergies Allergy Verified 10/08/17 17:09 - Social History Does the pt smoke?: No Smoking Status: Never smoker Does the pt drink ETOH?: No Does the pt have substance abuse?: No - Immunizations Immunizations are current?: Yes - POLST Patient has POLST: No PD ED PE NORMAL - General General: Alert and oriented X 3, No acute distress - HEENT HEENT: Atraumatic, PERRL, EOMI - Neck Neck: Supple, no meningeal sign - Cardiac Cardiac: RRR, Strong equal pulses - Respiratory Respiratory: No respiratory distress - Abdomen Abdomen: Normal bowel sounds, Non tender, Non distended - Derm Derm: Normal color - Extremities Extremities: No deformity, Normal ROM s pain, No edema - Neuro Neuro: Alert and oriented X 3, machine tracer 2-12 intact, No motor deficit - Psych Psych: Normal mood Results - Vitals Vitals: Vital Signs - 24 hr 10/22/17 10/22/17 10/22/17 19:15 19:28 19:34 Temperature 36.8 C Heart Rate 78 80 Respiratory 12 16 Rate Blood Pressure 123/76 98/82 H Blood Pressure 123/70 [Left] Blood Pressure 98/82 H [Right] O2 Saturation 97 100 10/22/17 20:43 Temperature 37.0 C Heart Rate 78 Respiratory 14 Rate Blood Pressure 119/70 Blood Pressure [Left] Blood Pressure [Right] O2 Saturation 100 Oxygen O2 Source Room air - EKG (time done) 19:22 Rate: Rate (enter#) Rhythm: NSR Intervals: Normal [place], QRS normal Ischemia: Non specific changes Other comments: Other comments (No acute ischemic changes) - Labs Labs: Laboratory Tests 10/22/17 10/22/17 10/22/17 19:26 19:26 19:26 WBC 8.2 RBC 4.70 Hgb 12.6 Hct 38.3 MCV 81.5 MCH 26.8 L MCHC 32.8 RDW 14.3 Plt Count 302 MPV 7.9 Neut # (Auto) 3.9 Lymph # (Auto) 3.3 [place] # (Auto) 0.8 Eos # (Auto) 0.2 Baso # (Auto) 0.0 Absolute Nucleated RBC 0.01 Nucleated RBC % 0.1 Sodium Potassium Chloride Carbon Dioxide Anion Gap BUN Creatinine Estimated GFR (MDRD) Glucose Calcium Total Bilirubin AST ALT Alkaline Phosphatase Total Creatine Kinase 59 CK-MB (CK-2) 0.6 Troponin I < 0.04 Total Protein Albumin Globulin Albumin/Globulin Ratio Lipase Urine Color Urine Clarity Urine pH Ur Specific [place] Urine Protein Urine Glucose (UA) Urine Ketones Urine Occult Blood Urine Nitrite Urine Bilirubin Urine Urobilinogen Ur Leukocyte Esterase Urine RBC Urine WBC Ur Squamous Epith Cells Urine Crystals Urine Bacteria Urine Culture Comments Urine HCG, Qual 10/22/17 10/22/17 10/22/17 19:26 20:14 20:14 WBC RBC Hgb Hct MCV MCH MCHC RDW Plt Count MPV Neut # (Auto) Lymph # (Auto) [place] # (Auto) Eos # (Auto) Baso # (Auto) Absolute Nucleated RBC Nucleated RBC % Sodium 137 Potassium 3.1 L Chloride 108 Carbon Dioxide 23 Anion Gap 6.0 BUN 11 Creatinine 0.5 Estimated GFR (MDRD) 153 Glucose 105 H Calcium 8.6 Total Bilirubin 0.5 AST 15 ALT 23 Alkaline Phosphatase 143 H Total Creatine Kinase CK-MB (CK-2) Troponin I Total Protein 6.7 Albumin 3.6 Globulin 3.1 Albumin/Globulin Ratio 1.2 Lipase 19 L Urine Color YELLOW Urine Clarity CLEAR Urine pH 6.0 Ur Specific [place] 1.025 1.025 Urine Protein NEGATIVE Urine Glucose (UA) NEGATIVE Urine Ketones NEGATIVE Urine Occult Blood MODERATE H Urine Nitrite NEGATIVE Urine Bilirubin NEGATIVE Urine Urobilinogen 1 (NORMAL) Ur Leukocyte Esterase NEGATIVE Urine RBC 0-5 Urine WBC 0-3 Ur Squamous Epith Cells MANY Squamous H Urine Crystals 0-2 Calcium Oxalate Urine Bacteria Few Urine Culture Comments NOT INDICATED Urine HCG, Qual NEGATIVE - Rads (name of study) CXR Radiology: Final report received (Impression: No acute disease) PD MEDICAL DECISION MAKING - ED course Complexity details: other (The patient's heart score places her into a low risk category, And a PE is unlikely. The patient's workup does not show any significant abnormality that would necessitate admission to the hospital. The patient appears appropriate for discharge home and ongoing workup as an outpatient. I discussed warning signs and recommended returning to the emergency department for any worsening or any concerns) - Sepsis Event Vital Signs: Vital Signs - 24 hr 10/22/17 10/22/17 10/22/17 19:15 19:28 19:34 Temperature 36.8 C Heart Rate 78 80 Respiratory 12 16 Rate Blood Pressure 123/76 98/82 H Blood Pressure 123/70 [Left] Blood Pressure 98/82 H [Right] O2 Saturation 97 100 10/22/17 20:43 Temperature 37.0 C Heart Rate 78 Respiratory 14 Rate Blood Pressure 119/70 Blood Pressure [Left] Blood Pressure [Right] O2 Saturation 100 Oxygen O2 Source Room air Departure - Departure Disposition: 01 Home, Self Care Clinical Impression: Chest pain Qualifiers: Chest pain type: unspecified Qualified Code(s): R07.9 - Chest pain, unspecified Condition: Good Instructions: ED Chest Pain [facility] Follow-Up: ADRYAN GIANG DO [Primary Care Provider] - Within 3 Days Comments: Please return to the emergency department immediately for worsening symptoms or any concerns
[2017-10-22 20:18] LABS: BILIRUBIN,URINE NEGATIVE (NEGATIVE); GLUCOSE, URINE (UA) NEGATIVE (NEGATIVE); KETONES,URINE (UA) NEGATIVE (NEGATIVE); LEUKOCYTE ESTERASE, URINE NEGATIVE (NEGATIVE); NITRITE,URINE NEGATIVE (NEGATIVE); OCCULT BLOOD,URINE MODERATE (NEGATIVE); PROTEIN,URINE NEGATIVE (NEGATIVE); UROBILINOGEN,URINE 1 (NORMAL) E.U./dL (NORMAL)
[2017-10-22 20:20] LABS: HCG UR QUAL NEGATIVE
[2017-10-22 20:28] LABS: BACTERIA,URINE Few /HPF (None Seen); CLARITY,URINE CLEAR (CLEAR); CRYSTALS,URINE 0-2 Calcium Oxalate /LPF; RBC,URINE 0-5 /HPF (0-5); SQUAMOUS EPITHELIAL CELL,UR MANY Squamous (<= Few)
[2017-10-22] MEDS ORDERED: POTASSIUM CHLORIDE 20 MEQ TABLET PO STA (20:28)
--- NOTE | 2017-10-22 20:35 | XRAY Report ---
Procedure Date: 10/22/2017 Accession Number: [id number] / [id number] Procedure: XR - Chest 2 View X-Ray CPT Code: 03871 FULL RESULT: EXAM: CHEST RADIOGRAPHY EXAM DATE: 10/22/2017 08:27 PM. CLINICAL HISTORY: CP. COMPARISON: 09/25/2017. TECHNIQUE: 2 views. FINDINGS: Lungs/Pleura: No focal opacities evident. No pleural effusion. No pneumothorax. Normal volumes. Mediastinum: Heart and mediastinal contours are unremarkable. Other: None. IMPRESSION: Normal 2-view chest radiography. RADIA
[2017-10-22 20:44] VITALS: BP 119/70
== END 2017-10-22 20:54 | disposition home or self-care (01) ==
LOC: ED 19:09
DX: R07.9 Chest pain, unspecified (principal)
CPT/HCPCS: 36415; 71046; 80053; 81001; 81025; 82550; 82553; 83690; 84484; 85025; 93005; 99283; 99284; A9270; 87086

== ENCOUNTER 2017-10-30 21:36 | Emergency (ER) | payer OTHER ==
[2017-10-30 22:47] LABS: BASOPHILS # (AUTO) 0.1 10^3/uL (0.0-0.1); BASOPHILS % (AUTO) 0.9 %; EOSINOPHILS # (AUTO) 0.2 10^3/uL (0.0-0.7); EOSINOPHILS % (AUTO) 2.5 %; HGB - HEMOGLOBIN 13.6 g/dL (12.0-16.0); LYMPHOCYTES # (AUTO) 3.3 10^3/uL (1.5-3.5); LYMPHOCYTES % (AUTO) 44.2 %; MEAN CORPUSCULAR HEMOGLOBIN 27.6 pg (27.0-31.0); MEAN CORPUSCULAR HGB CONC 33.9 g/dL (32.0-36.0); MEAN CORPUSCULAR VOLUME 81.5 fL (81.0-99.0); MEAN PLATELET VOLUME 8.2 fL (7.9-10.8); MONOCYTES # (AUTO) 0.7 10^3/uL (0.0-1.0); MONOCYTES % (AUTO) 9.6 %; NEUTROPHILS # (AUTO) 3.2 10^3/uL (1.5-6.6); NEUTROPHILS % (AUTO) 42.8 %; PLT - PLATELET COUNT 235 10^3/uL (130-450); RED CELL DISTRIBUTION WIDTH 14.6 % (12.0-15.0); WHITE BLOOD COUNT 7.4 x10^3/uL (4.8-10.8)
[2017-10-30 23:02] LABS: ALBUMIN 3.8 g/dL (3.2-5.5); ALBUMIN/GLOBULIN RATIO 1.2 (1.0-2.2); BILIRUBIN,TOTAL 0.6 mg/dL (0.2-1.0); CALCIUM 9.1 mg/dL (8.5-10.3); CREATININE 0.6 mg/dL (0.4-1.0)
[2017-10-30 23:12] LABS: MUDS CUTOFF CONCENTRATIONS CUTOFF CONC BELOW:
[2017-10-30] MEDS ORDERED: KETOROLAC 60 MG/2 ML VIAL IM STA (23:12)
[2017-10-30 23:16] LABS: BILIRUBIN,URINE NEGATIVE (NEGATIVE); GLUCOSE, URINE (UA) NEGATIVE (NEGATIVE); KETONES,URINE (UA) NEGATIVE (NEGATIVE); LEUKOCYTE ESTERASE, URINE NEGATIVE (NEGATIVE); NITRITE,URINE NEGATIVE (NEGATIVE); OCCULT BLOOD,URINE SMALL (NEGATIVE); PH,URINE 6.5 PH (5.0-7.5); PROTEIN,URINE NEGATIVE (NEGATIVE); UROBILINOGEN,URINE 0.2 (NORMAL) E.U./dL (NORMAL)
[2017-10-30 23:17] LABS: CLARITY,URINE HAZY (CLEAR); HCG UR QUAL NEGATIVE
[2017-10-30 23:22] LABS: AMORPHOUS SEDIMENT,UR Moderate /LPF; BACTERIA,URINE Few /HPF (None Seen); RBC,URINE 0-5 /HPF (0-5); SQUAMOUS EPITHELIAL CELL,UR MOD Squamous (<= Few)
--- NOTE | 2017-10-30 23:22 | ED Physician Documentation ---
PD HPI CHEST PAIN - Stated complaint Stated Complaint: CP/VISION PROBLEMS - Chief complaint Chief Complaint: Cardiac - History obtained from History obtained from: Patient - History of Present Illness Timing - onset: How many weeks ago (1) Timing - details: Intermittant Quality: Sharp Location: Right chest Worsened by: Palpation, Position Similar symptoms before: Work up / diagnostics Recently seen: Emergency Dept - Additional information Additional information: patient is a 22 year old female with no significant past medical history who is presenting to the emergency department for right sided chest pain. patient was seen a week ago for similar symptoms and her symptoms have persisted. Review of Systems Ten Systems: 10 systems reviewed and negative Constitutional: denies: Fever, Chills Cardiac: reports: Chest pain / pressure. 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 HEENT: None Psych: None Musculoskeletal: None Derm: None - Past Surgical History Past Surgical History: No - Present Medications Home Medications: Ambulatory Orders Medication Instructions Recorded Confirmed Atenolol 25 mg PO BID 09/30/17 10/22/17 Methimazole [Tapazole] 10 mg PO TID 10/08/17 10/22/17 Ondansetron HCl [Zofran] 4 mg PO Q6H PRN #10 tablet 10/08/17 10/22/17 Vitamin D3/Folic Acid [Cifrazol 1 each PO DAILY 10/08/17 10/22/17 3,775 Unit-1 mg Cap] - Allergies Allergies/Adverse Reactions: Allergies Allergy/AdvReac Type Severity Reaction Status Date / Time No Known Drug Allergies Allergy Verified 10/30/17 21:53 - Social History Does the pt smoke?: No Smoking Status: Never smoker Does the pt drink ETOH?: No Does the pt have substance abuse?: No - Immunizations Immunizations are current?: Yes - POLST Patient has POLST: No PD ED PE NORMAL - Vitals Vital signs reviewed: Yes - General General: Alert and oriented X 3, No acute distress - HEENT HEENT: Atraumatic - Neck Neck: No JVD - Cardiac Cardiac: RRR, No murmur - Respiratory Respiratory: No respiratory distress, Clear bilaterally - Abdomen Abdomen: Soft, Non tender, Non distended - Derm Derm: Normal color, Warm and dry - Extremities Extremities: No deformity - Neuro Neuro: Alert and oriented X 3 Eye Opening: Spontaneous PD ED PE EXPANDED - Cardiac Cardiac: Chest wall TTP (mild chest wall pain, tenderness to palpation) Results - Vitals Vitals: Vital Signs - 24 hr 10/30/17 10/31/17 21:49 00:05 Temperature 36.5 C Heart Rate 74 62 Respiratory 16 16 Rate Blood Pressure 122/87 H 116/72 O2 Saturation 99 99 Oxygen O2 Source Room air - EKG (time done) 2144 Rate: Rate (enter#) (70) Rhythm: NSR [place]: Normal Intervals: Normal [place] QRS: Normal Ischemia: Normal ST segments Compare to prior EKG: Unchanged from prior EKG - Labs Labs: Laboratory Tests 10/30/17 10/30/17 10/30/17 22:41 22:41 22:41 WBC 7.4 RBC 4.90 Hgb 13.6 Hct 40.0 MCV 81.5 MCH 27.6 MCHC 33.9 RDW 14.6 Plt Count 235 MPV 8.2 Neut # (Auto) 3.2 Lymph # (Auto) 3.3 [place] # (Auto) 0.7 Eos # (Auto) 0.2 Baso # (Auto) 0.1 Absolute Nucleated RBC 0.01 Nucleated RBC % 0.1 D-Dimer Sodium 137 Potassium 3.9 Chloride 105 Carbon Dioxide 25 Anion Gap 7.0 BUN 16 Creatinine 0.6 Estimated GFR (MDRD) 124 Glucose 90 Calcium 9.1 Total Bilirubin 0.6 AST 16 ALT 21 Alkaline Phosphatase 149 H Troponin I < 0.04 Total Protein 7.0 Albumin 3.8 Globulin 3.2 Albumin/Globulin Ratio 1.2 Lipase 18 L TSH Urine Color Urine Clarity Urine pH Ur Specific [place] Urine Protein Urine Glucose (UA) Urine Ketones Urine Occult Blood Urine Nitrite Urine Bilirubin Urine Urobilinogen Ur Leukocyte Esterase Urine RBC Urine WBC Ur Squamous Epith Cells Amorphous Sediment Urine Bacteria Ur Microscopic Review Urine Culture Comments Urine HCG, Qual Urine Opiates Screen Ur Oxycodone Screen Urine Methadone Screen Ur Propoxyphene Screen Ur Barbiturates Screen Ur Tricyclics Screen Ur Phencyclidine Scrn Ur Amphetamine Screen U Methamphetamines Scrn U Benzodiazepines Scrn Urine Cocaine Screen U Cannabinoids Screen 10/30/17 10/30/17 10/30/17 22:41 23:05 23:05 WBC RBC Hgb Hct MCV MCH MCHC RDW Plt Count MPV Neut # (Auto) Lymph # (Auto) [place] # (Auto) Eos # (Auto) Baso # (Auto) Absolute Nucleated RBC Nucleated RBC % D-Dimer Sodium Potassium Chloride Carbon Dioxide Anion Gap BUN Creatinine Estimated GFR (MDRD) Glucose Calcium Total Bilirubin AST ALT Alkaline Phosphatase Troponin I Total Protein Albumin Globulin Albumin/Globulin Ratio Lipase TSH < 0.08 L Urine Color YELLOW Urine Clarity HAZY Urine pH 6.5 Ur Specific [place] 1.020 Urine Protein NEGATIVE Urine Glucose (UA) NEGATIVE Urine Ketones NEGATIVE Urine Occult Blood SMALL H Urine Nitrite NEGATIVE Urine Bilirubin NEGATIVE Urine Urobilinogen 0.2 (NORMAL) Ur Leukocyte Esterase NEGATIVE Urine RBC 0-5 Urine WBC 0-3 Ur Squamous Epith Cells MOD Squamous H Amorphous Sediment Moderate Urine Bacteria Few Ur Microscopic Review INDICATED Urine Culture Comments NOT INDICATED Urine HCG, Qual NEGATIVE Urine Opiates Screen NEGATIVE Ur Oxycodone Screen NEGATIVE Urine Methadone Screen NEGATIVE Ur Propoxyphene Screen NEGATIVE Ur Barbiturates Screen NEGATIVE Ur Tricyclics Screen NEGATIVE Ur Phencyclidine Scrn NEGATIVE Ur Amphetamine Screen NEGATIVE U Methamphetamines Scrn NEGATIVE U Benzodiazepines Scrn NEGATIVE Urine Cocaine Screen NEGATIVE U Cannabinoids Screen NEGATIVE 10/30/17 23:22 WBC RBC Hgb Hct MCV MCH MCHC RDW Plt Count MPV Neut # (Auto) Lymph # (Auto) [place] # (Auto) Eos # (Auto) Baso # (Auto) Absolute Nucleated RBC Nucleated RBC % D-Dimer < 200.0 L Sodium Potassium Chloride Carbon Dioxide Anion Gap BUN Creatinine Estimated GFR (MDRD) Glucose Calcium Total Bilirubin AST ALT Alkaline Phosphatase Troponin I Total Protein Albumin Globulin Albumin/Globulin Ratio Lipase TSH Urine Color Urine Clarity Urine pH Ur Specific [place] Urine Protein Urine Glucose (UA) Urine Ketones Urine Occult Blood Urine Nitrite Urine Bilirubin Urine Urobilinogen Ur Leukocyte Esterase Urine RBC Urine WBC Ur Squamous Epith Cells Amorphous Sediment Urine Bacteria Ur Microscopic Review Urine Culture Comments Urine HCG, Qual Urine Opiates Screen Ur Oxycodone Screen Urine Methadone Screen Ur Propoxyphene Screen Ur Barbiturates Screen Ur Tricyclics Screen Ur Phencyclidine Scrn Ur Amphetamine Screen U Methamphetamines Scrn U Benzodiazepines Scrn Urine Cocaine Screen U Cannabinoids Screen PD MEDICAL DECISION MAKING - ED course Complexity details: reviewed old records, reviewed results, re-evaluated patient , considered differential, d/w patient ED course: Patient was seen and examined at bedside. Patient was well appearing and in no distress. ekg was performed from previous. labs were drawn including troponin and d-dimer. Patient's diagnostics were within normal limits. patient's previous chest x-ray was reviewed and was also within normal limits. Patient's symptoms were unlikely cardiac or pulmonary in nature. Patient required no further inpatient work up and was stable for discharge with outpatient followup. - Sepsis Event Vital Signs: Vital Signs - 24 hr 10/30/17 10/31/17 21:49 00:05 Temperature 36.5 C Heart Rate 74 62 Respiratory 16 16 Rate Blood Pressure 122/87 H 116/72 O2 Saturation 99 99 Oxygen O2 Source Room air Departure - Departure Disposition: 01 Home, Self Care Clinical Impression: Chest wall pain Condition: Good Instructions: ED Chest Pain NonCardiac Follow-Up: ADRYAN GIANG DO [Primary Care Provider] - Within 3 Days Comments: Your diagnostics today were within normal limits. you pain is likely secondary to chest wall strain or pleuresy. you can take ibuprofen 600mg every 6 hrs as needed for pain. you should follow up with your doctor if your symptoms persist. you may return to the emergency department at any time for new, worsening or uncontrollable symptoms. Forms: Activity restrictions
[2017-10-30 23:24] LABS: AMPHETAMINE SCREEN,URINE NEGATIVE (NEGATIVE); BENZODIAZEPINES SCREEN, URINE NEGATIVE (NEGATIVE); COCAINE SCREEN URINE NEGATIVE (NEGATIVE); METHADONE SCREEN, URINE NEGATIVE (NEGATIVE); METHAMPHETAMINES SCREEN, URINE NEGATIVE (NEGATIVE); OPIATE SCREEN, URINE NEGATIVE (NEGATIVE); OXYCODONE SCREEN, URINE NEGATIVE (NEGATIVE); PROPOXYPHENE SCREEN, URINE NEGATIVE (NEGATIVE); TRICYCLIC ANTIDEPRESSANT,URINE NEGATIVE (NEGATIVE)
[2017-10-31 00:10] VITALS: BP 116/72
== END 2017-10-31 00:10 | disposition home or self-care (01) ==
LOC: ED 21:36
DX: R07.89 Other chest pain (principal)
CPT/HCPCS: 36415; 80053; 80306; 81001; 81003; 81025; 83690; 84443; 84484; 85025; 85379; 87086; 93005; 96372; 99283

== ENCOUNTER 2017-12-05 10:16 | Emergency (ER) | payer OTHER ==
[2017-12-05 11:10] LABS: BILIRUBIN,URINE NEGATIVE (NEGATIVE); GLUCOSE, URINE (UA) NEGATIVE (NEGATIVE); KETONES,URINE (UA) NEGATIVE (NEGATIVE); LEUKOCYTE ESTERASE, URINE TRACE (NEGATIVE); NITRITE,URINE NEGATIVE (NEGATIVE); OCCULT BLOOD,URINE NEGATIVE (NEGATIVE); PH,URINE 5.5 PH (5.0-7.5); PROTEIN,URINE NEGATIVE (NEGATIVE); UROBILINOGEN,URINE 0.2 (NORMAL) E.U./dL (NORMAL)
[2017-12-05 11:13] LABS: CLARITY,URINE CLEAR (CLEAR)
[2017-12-05 11:27] LABS: BACTERIA,URINE Few /HPF (None Seen); HCG UR QUAL NEGATIVE; MUCUS,URINE Few Strands; RBC,URINE 0-5 /HPF (0-5); SQUAMOUS EPITHELIAL CELL,UR MOD Squamous (<= Few)
[2017-12-05] MEDS ORDERED: LIDOCAINE 1% 2 ML VIAL SUBQ ONE (11:43)
[2017-12-05] MEDS ORDERED: KETOROLAC 60 MG/2 ML VIAL IM STA (11:43)
[2017-12-05] MEDS ORDERED: cefTRIAXone 1 GM VIAL IM STA (11:43)
--- NOTE | 2017-12-05 12:25 | ED Physician Documentation ---
PD HPI BACK PAIN - Stated complaint Stated Complaint: NECK/BACL PX/ POSS THYROID - Chief complaint Chief Complaint: General - History obtained from History obtained from: Patient, Family - History of Present Illness Timing - onset: How many days ago (4) Timing - duration: Days (4) Timing - details: Gradual onset, Still present Location: Lower, Left Quality: Pain, Spasm, Sharp, Similar to prior episodes Associated symptoms: Numbness (to fingers and toes). No: Fever Improves with: Rest, Position Worsened by: Movement Similar symptoms before: Diagnosis (back pain) Recently seen: Clinic - Additional information Additional information: 22-year-old female who is currently being worked up for hyperthyroidism and was taken off of her methimizole last week for hypothyroid. She is scheduled to have her thyroid checked tomorrow and restart the methimazole. She has left sided back pain that has been present for 4 days. She denies fever or vomiting and denies urinary symptoms. She does acknowledge back pain, anxiety, racing heart and insomnia and she is on atenolol but not on valium or ativan. She acknowledges stress at home with filing for divorce last night. Review of Systems Constitutional: reports: Fatigue. denies: Fever, Myalgias Eyes: denies: Decreased vision Ears: denies: Ear pain Nose: denies: Rhinorrhea / runny nose, Congestion Throat: reports: Sore throat Cardiac: reports: Palpitations. denies: Chest pain / pressure Respiratory: reports: Dyspnea. denies: Cough GI: denies: Abdominal Pain, Nausea, Vomiting, Constipation, Diarrhea : denies: Dysuria, Frequency Skin: denies: Rash Musculoskeletal: reports: Neck pain, Back pain. 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 HEENT: None Psych: None Musculoskeletal: None Derm: None - Past Surgical History Past Surgical History: No - Present Medications Home Medications: Ambulatory Orders Medication Instructions Recorded Confirmed Atenolol 25 mg PO BID 09/30/17 12/05/17 HYDROcod/ACETAM 5/325 [[place] 5/325] 1 - 2 ea PO Q6H PRN #15 tablet 12/05/17 Lorazepam [Ativan] 1 mg PO Q6HR PRN #20 tablet 12/05/17 Sulfamethoxazole/Trimethoprim 1 each PO BID #14 tablet 12/05/17 [Sulfamethoxazole-Tmp Ds Tablet] - Allergies Allergies/Adverse Reactions: Allergies Allergy/AdvReac Type Severity Reaction Status Date / Time No Known Drug Allergies Allergy Verified 12/05/17 10:25 - Social History Does the pt smoke?: No Smoking Status: Never smoker Does the pt drink ETOH?: No Does the pt have substance abuse?: No - Immunizations Immunizations are current?: Yes - POLST Patient has POLST: No PD ED PE NORMAL - Vitals Vital signs reviewed: Yes (hypertensive) - General General: Alert and oriented X 3, Well developed/nourished, Other (The patient is laying on her back with her knees up to her chest) - HEENT HEENT: Atraumatic, PERRL, EOMI - Neck Neck: Supple, no meningeal sign - Cardiac Cardiac: RRR, No murmur - Respiratory Respiratory: No respiratory distress, Clear bilaterally - Abdomen Abdomen: Soft, Other (There is obvious tenderness in the LUQ to bimanual palpation of the left kidney ) - Back Back: No spinal TTP, Other (Left CVA tenderness) - Derm Derm: Normal color, Warm and dry, No rash - Extremities Extremities: No deformity, No edema - Neuro Neuro: Alert and oriented X 3, adhesive bandage making operator 2-12 intact, No motor deficit, No sensory deficit, Normal speech Eye Opening: Spontaneous Motor: Obeys Commands Verbal: Oriented GCS Score: 15 - Psych Psych: Normal mood, Normal affect Results - Vitals Vitals: Vital Signs - 24 hr 12/05/17 12/05/17 10:22 12:38 Temperature 36.8 C 36.5 C Heart Rate 74 70 Respiratory 16 16 Rate Blood Pressure 117/81 H 118/80 O2 Saturation 99 100 Oxygen O2 Source Room air - Labs Labs: Laboratory Tests 12/05/17 10:50 Urine Color YELLOW Urine Clarity CLEAR Urine pH 5.5 Ur Specific [place] >=1.030 H Urine Protein NEGATIVE Urine Glucose (UA) NEGATIVE Urine Ketones NEGATIVE Urine Occult Blood NEGATIVE Urine Nitrite NEGATIVE Urine Bilirubin NEGATIVE Urine Urobilinogen 0.2 (NORMAL) Ur Leukocyte Esterase TRACE H Urine RBC 0-5 Urine WBC 11-25 H Ur Squamous Epith Cells MOD Squamous H Urine Bacteria Few Urine Mucus Few Strands Ur Microscopic Review INDICATED Urine Culture Comments NOT INDICATED Urine HCG, Qual NEGATIVE PD MEDICAL DECISION MAKING - ED course Complexity details: reviewed results, re-evaluated patient, considered differential, d/w patient, d/w family ED course: 22-year-old female with a history of hyperthyroidism has left-sided flank tenderness to bimanual palpation of the left kidney. She is improving with use of Toradol and her urine does appear to indicate infection. She is administered Toradol 60 mg IM and Rocephin 1 g IM. We will put her on some sulfamethoxazole and we will provide some Ativan as well as some pain medication. - Sepsis Event Vital Signs: Vital Signs - 24 hr 12/05/17 12/05/17 10:22 12:38 Temperature 36.8 C 36.5 C Heart Rate 74 70 Respiratory 16 16 Rate Blood Pressure 117/81 H 118/80 O2 Saturation 99 100 Oxygen O2 Source Room air Departure - Departure Disposition: 01 Home, Self Care Clinical Impression: Pyelonephritis, Anxiety disorder due to general medical condition Condition: Stable Instructions: ED Stress React, ED Kidney Infec Female Follow-Up: Philippe Manuel MD [Primary Care Provider] - Prescriptions: Lorazepam [Ativan] 1 mg PO Q6HR PRN #20 tablet PRN Reason: anxiety/insomnia HYDROcod/ACETAM 5/325 [[place] 5/325] 1 - 2 ea PO Q6H PRN #15 tablet PRN Reason: Pain Sulfamethoxazole/Trimethoprim [Sulfamethoxazole-Tmp Ds Tablet] 1 each PO BID # 14 tablet Forms: Activity restrictions
[2017-12-05 12:39] VITALS: BP 118/80
== END 2017-12-05 14:12 | disposition home or self-care (01) ==
LOC: ED 10:16
DX: N12 Tubulo-interstitial nephritis, not specified as acute or chronic (principal); F06.4 Anxiety disorder due to known physiological condition
CPT/HCPCS: 81001; 81003; 81025; 87086; 96372; 99283; 99284

== ENCOUNTER 2018-03-11 00:13 | Emergency (ER) | payer OTHER ==
--- NOTE | 2018-03-11 02:12 | ED Physician Documentation ---
PD HPI CHEST PAIN - Stated complaint Stated Complaint: CHEST PAIN,LT SIDE TINGLING - Chief complaint Chief Complaint: Cardiac - History obtained from History obtained from: Patient - History of Present Illness Timing - onset: Today Timing - onset during: Light activity Timing - details: Gradual onset, Waxing and waning Quality: Aching, Sharp, Pain Location: Left chest Radiation: Back Associated symptoms: Other (numbness in left arm and leg, with feeling of numbness left face.). No: Shortness of air, Nausea, Feeling faint / dizzy, Palpitations Similar symptoms before: No diagnosis (anxiety and pleurisy in the past. Has gu rgery this coming for hyperthyroidism and so not supposed to take NSAIDs starting today.) Review of Systems Constitutional: denies: Fever, Myalgias Nose: denies: Rhinorrhea / runny nose, Congestion Throat: denies: Sore throat Cardiac: reports: Chest pain / pressure. denies: Palpitations, Pedal edema, Calf pain Respiratory: denies: Dyspnea, Cough GI: denies: Abdominal Pain, Vomiting Skin: denies: Rash, Lesions Neurologic: reports: Numbness (face, arm and leg). 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 HEENT: None Psych: None Musculoskeletal: None Derm: None - Past Surgical History Past Surgical History: No - Present Medications Home Medications: Ambulatory Orders Medication Instructions Recorded Confirmed Atenolol 25 mg PO BID 09/30/17 12/05/17 HYDROcod/ACETAM 5/325 [[place] 5/325] 1 - 2 ea PO Q6H PRN #15 tablet 12/05/17 Lorazepam [Ativan] 1 mg PO Q6HR PRN #20 tablet 12/05/17 Sulfamethoxazole/Trimethoprim 1 each PO BID #14 tablet 12/05/17 [Sulfamethoxazole-Tmp Ds Tablet] - Allergies Allergies/Adverse Reactions: Allergies Allergy/AdvReac Type Severity Reaction Status Date / Time No Known Drug Allergies Allergy Verified 12/05/17 10:25 - Social History Does the pt smoke?: No Smoking Status: Former smoker Does the pt drink ETOH?: No Does the pt have substance abuse?: No - Immunizations Immunizations are current?: Yes - POLST Patient has POLST: No PD ED PE NORMAL - Vitals Vital signs reviewed: Yes - General General: Alert and oriented X 3, Well developed/nourished - Neck Neck: Supple, no meningeal sign, No adenopathy - Cardiac Cardiac: RRR, No murmur - Respiratory Respiratory: Clear bilaterally, Other (chestwall tenderness left lower sternal border. ) - Abdomen Abdomen: Soft, Non tender - Derm Derm: Normal color, Warm and dry - Extremities Extremities: No tenderness to palpate, Normal ROM s pain, No edema, No calf tenderness / cord - Neuro Neuro: Alert and oriented X 3, No motor deficit, Normal speech Results - Vitals Vitals: Vital Signs - 24 hr 03/11/18 03/11/18 03/11/18 00:18 01:45 02:47 Temperature 36.8 C Heart Rate 73 70 76 Respiratory 15 16 16 Rate Blood Pressure 114/75 111/73 113/76 Blood Pressure 111/73 [Left] O2 Saturation 100 100 03/11/18 04:26 Temperature Heart Rate 88 Respiratory 16 Rate Blood Pressure 108/78 Blood Pressure [Left] O2 Saturation 100 Oxygen O2 Source Room air - EKG (time done) 00:23 Rate: Rate (enter#) (70) Rhythm: NSR Strawn: Normal Intervals: Normal SD QRS: Normal Ischemia: Normal ST segments. No: ST elevation c/w ischemia, ST depression - Labs Labs: Laboratory Tests 03/11/18 03/11/18 03/11/18 02:55 02:55 02:55 WBC 6.9 RBC 4.79 Hgb 13.5 Hct 40.3 MCV 84.3 MCH 28.1 MCHC 33.4 RDW 13.6 Plt Count 246 MPV 7.7 L Neut # (Auto) 2.5 Lymph # (Auto) 3.7 H Mitchell # (Auto) 0.5 Eos # (Auto) 0.1 Baso # (Auto) 0.1 Absolute Nucleated RBC 0.01 Nucleated RBC % 0.1 D-Dimer < 200.0 L Sodium 133 L Potassium 3.8 Chloride 104 Carbon Dioxide 24 Anion Gap 5.0 L BUN 15 Creatinine 0.6 Estimated GFR (MDRD) 123 Glucose 91 Calcium 8.7 Magnesium 2.0 Total Bilirubin 0.5 AST 19 ALT 26 Alkaline Phosphatase 139 H Total Protein 7.2 Albumin 4.1 Globulin 3.1 Albumin/Globulin Ratio 1.3 Lipase 20 L - Rads (name of study) chest xray Radiology: Prelim report reviewed (no acute process) PD MEDICAL DECISION MAKING - ED course Complexity details: reviewed results, considered differential (Has chest wall tenderness and so the chest pain itself seems musculoskeletal. EKG and chest x- ray are normal. However there is concern for the numbness in the arm leg and face as well so I could consider vascular process. Screening for that I did do a d-dimer which was negative. Though certainly not 100% accurate, I feel this is excluding significant process enough that I feel the patient is safe to be discharged.), d/w patient Departure - Departure Disposition: 01 Home, Self Care Clinical Impression: Left arm numbness Chest pain Qualifiers: Chest pain type: unspecified Qualified Code(s): R07.9 - Chest pain, unspecified Condition: Stable Record reviewed to determine appropriate education?: Yes Instructions: ED Chest Pain Costochondritis Follow-Up: Philippe Manuel MD [Primary Care Provider] - Comments: Drink lots of fluids. Tylenol every 4-6 hours if needed for pain. Add hydrocodone if needed. Recheck if not improved over the next couple of days. Return if worsening or other symptoms develop. It seems to be some inflammation in the chest wall. I am not sure the cause of the tingling in the arm. There are no serious causes apparent on your test today. Forms: Activity restrictions Discharge Date/Time: 03/11/18 04:27
[2018-03-11] MEDS ORDERED: HYDROcod/ACETAM 5/325 MG TABLET PO STA (02:31)
[2018-03-11] MEDS ORDERED: DEXAMETHASONE 10 MG/ML VIAL PO STA (02:31)
[2018-03-11 03:03] LABS: BASOPHILS # (AUTO) 0.1 10^3/uL (0.0-0.1); BASOPHILS % (AUTO) 0.7 %; EOSINOPHILS # (AUTO) 0.1 10^3/uL (0.0-0.7); EOSINOPHILS % (AUTO) 1.5 %; HGB - HEMOGLOBIN 13.5 g/dL (12.0-16.0); LYMPHOCYTES # (AUTO) 3.7 10^3/uL (1.5-3.5); MEAN CORPUSCULAR HEMOGLOBIN 28.1 pg (27.0-31.0); MEAN CORPUSCULAR HGB CONC 33.4 g/dL (32.0-36.0); MEAN CORPUSCULAR VOLUME 84.3 fL (81.0-99.0); MEAN PLATELET VOLUME 7.7 fL (7.9-10.8); MONOCYTES # (AUTO) 0.5 10^3/uL (0.0-1.0); MONOCYTES % (AUTO) 7.8 %; NEUTROPHILS # (AUTO) 2.5 10^3/uL (1.5-6.6); PLT - PLATELET COUNT 246 10^3/uL (130-450); RED BLOOD COUNT 4.79 10^6/uL (4.20-5.40); RED CELL DISTRIBUTION WIDTH 13.6 % (12.0-15.0); WHITE BLOOD COUNT 6.9 x10^3/uL (4.8-10.8)
[2018-03-11 03:16] LABS: ALBUMIN 4.1 g/dL (3.2-5.5); ALBUMIN/GLOBULIN RATIO 1.3 (1.0-2.2); BILIRUBIN,TOTAL 0.5 mg/dL (0.2-1.0); CALCIUM 8.7 mg/dL (8.5-10.3); CREATININE 0.6 mg/dL (0.4-1.0); TOTAL PROTEIN 7.2 g/dL (6.7-8.2)
--- NOTE | 2018-03-11 03:25 | XRAY Report ---
Reason: chest pain Procedure Date: 03/11/2018 Accession Number: [id number] / [id number] Procedure: XR - Chest 1 View X-Ray CPT Code: 40288 FULL RESULT: EXAM: CHEST RADIOGRAPHY EXAM DATE: 03/11/2018 02:47 AM. CLINICAL HISTORY: Chest pain. COMPARISON: CHEST 2 VIEW 10/22/2017 8:15 PM. TECHNIQUE: 1 view. FINDINGS: Lungs/Pleura: No focal opacities evident. No pleural effusion. No pneumothorax. Mediastinum: Within exam limitations, the cardiomediastinal contour is normal. Other: None. IMPRESSION: Normal single view chest. RADIA
[2018-03-11] MEDS ORDERED: HYDROcod/ACET 5/325 Prepack 4 PO STA (03:28)
[2018-03-11 04:28] VITALS: BP 108/78
== END 2018-03-11 04:27 | disposition home or self-care (01) ==
LOC: ED 00:13
DX: R07.9 Chest pain, unspecified (principal); R20.0 Anesthesia of skin; E05.90 Thyrotoxicosis, unspecified without thyrotoxic crisis or storm; Z79.899 Other long term (current) drug therapy; Z87.891 Personal history of nicotine dependence
CPT/HCPCS: 36415; 71045; 80053; 83690; 83735; 85025; 85379; 93005; 99283; A9270

== ENCOUNTER 2018-04-08 23:05 | Emergency (ER) | payer OTHER ==
--- NOTE | 2018-04-08 23:09 | ED Physician Documentation ---
PD HPI URI - Stated complaint Stated Complaint: SORE THROAT,UNABLE TO TALK - History obtained from History obtained from: Patient - History of Present Illness Timing - onset: How many days ago (2) Timing duration: Days (2) Timing details: Gradual onset, Still present Associated symptoms: Sore throat, Swollen nodes, Dry cough (mild). No: Fever, Chills, Nasal congestion, Productive cough, NVD Contributing factors: No: Sick contact Improves by: No: Medication Worsened by: Other (swallowing and talking) Recently seen: Surgery (thyroidectomy 4 weeks ago and was doing okay, with healing wound and normal eating/swallowing. Has had 2 days of feeling sore throat, some swelling in throat with swallowing. No external swelling nor redness at surgical wound. Noted some adenopathy.) Review of Systems Constitutional: reports: Myalgias. denies: Fever, Chills Nose: denies: Rhinorrhea / runny nose, Congestion Throat: reports: Sore throat. 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: None Psych: None Musculoskeletal: None Derm: None - Past Surgical History Past Surgical History: No - Present Medications Home Medications: Ambulatory Orders Medication Instructions Recorded Confirmed Calcium Carbonate [Calcium] 1,500 04/08/18 Clindamycin HCl [Clindamycin 150MG 150 mg PO QID #20 capsule 04/08/18 CAP] Dexamethasone [Decadron] 4 mg PO DAILY #5 tablet 04/08/18 Escitalopram [Lexapro] 0 mg PO DAILY 04/08/18 Hydrocodone/Acetaminophen [[place] 1 each PO Q6H PRN #15 tablet 04/08/18 5-325 Tablet] Levothyroxine Sodium [Synthroid] 137 mcg PO 04/08/18 - Allergies Allergies/Adverse Reactions: Allergies Allergy/AdvReac Type Severity Reaction Status Date / Time No Known Drug Allergies Allergy Verified 12/05/17 10:25 - Social History Does the pt smoke?: No Smoking Status: Former smoker Does the pt drink ETOH?: No Does the pt have substance abuse?: No - Immunizations Immunizations are current?: Yes - POLST Patient has POLST: No PD ED PE NORMAL - Vitals Vital signs reviewed: Yes - General General: Alert and oriented X 3, Well developed/nourished, Other (reluctant to talk due to discomfort. When she does talk, her voice is soft but not garbled. ) - HEENT HEENT: Ears normal, Moist mucous membranes, Other (tonsils are enlarged but pink without exudate. There is anterior mild adenopathy. The thyroid surgical site is well healing without signs of infection nor any redness/swelling around it. ) - Neck Neck: Supple, no meningeal sign, Other (well healing surgical scar without infection. ) - Cardiac Cardiac: RRR, No murmur - Respiratory Respiratory: Clear bilaterally - Derm Derm: Normal color, Warm and dry - Neuro Neuro: Alert and oriented X 3, No motor deficit. No: Normal speech (soft voice but not hoarse nor garbled. ) Results - Vitals Vitals: Vital Signs - 24 hr 04/08/18 23:07 Temperature 36.8 C Heart Rate 91 Respiratory 16 Rate Blood Pressure 143/81 H O2 Saturation 100 Oxygen O2 Source Room air - Labs Labs: Laboratory Tests 04/08/18 23:13 Group A Strep Rapid Negative PD MEDICAL DECISION MAKING - ED course Complexity details: considered differential (i think is more conincidental viral or strep infection and not related to the thyroid surgery. Can opt for abx pending culture, in case. ), d/w patient Departure - Departure Disposition: 01 Home, Self Care Clinical Impression: Throat pain in adult Condition: Stable Record reviewed to determine appropriate education?: Yes Instructions: ED Neck Pain No Trauma Follow-Up: Philippe Manuel MD [Primary Care Provider] - Prescriptions: Clindamycin HCl [Clindamycin 150MG CAP] 150 mg PO QID #20 capsule Dexamethasone [Decadron] 4 mg PO DAILY #5 tablet Hydrocodone/Acetaminophen [[place] 5-325 Tablet] 1 each PO Q6H PRN #15 tablet PRN Reason: Pain Comments: Your rapid strep is negative. The culture result will take 2-3 days for other types of bacterial infections. We will treat this as possibly bacterial at this point, given the recent neck surgery and such. However it may be just a viral illness in which case will last a few days. Hopefully this will improve over the next couple of days with some anti-inflammatories antibiotic and medication for pain. Drink lots of fluids. Start eating food as tolerated for the discomfort. Recheck if not improving the next couple of days and return sooner if worse.
[2018-04-08] MEDS ORDERED: CLINDAMYCIN 150 MG CAPSULE PO STA (23:29)
[2018-04-08] MEDS ORDERED: DEXAMETHASONE 10 MG/ML VIAL PO STA (23:29)
[2018-04-08] MEDS ORDERED: HYDROcod/ACET 5/325 Prepack 4 PO STA (23:29)
[2018-04-08] MEDS ORDERED: NAPROXEN 250 MG TABLET PO STA (23:29)
[2018-04-08] MEDS ORDERED: CHERRY SYRUP 10 ML UDC PO ONE (23:37)
[2018-04-08 23:47] VITALS: BP 138/72
== END 2018-04-08 23:47 | disposition home or self-care (01) ==
LOC: ED 23:05
DX: R07.0 Pain in throat (principal); Z87.891 Personal history of nicotine dependence
CPT/HCPCS: 87070; 87430; 99283; A9270